=== PATIENT | female | born 1955 | race Two or more races ===

== ENCOUNTER 2018-12-29 11:41 | Emergency (ER) | payer OTHER ==
[~2018-12-29] VITALS: Ht 162.6 cm; Wt 77.1 kg
[2018-12-29 12:09] VITALS: BP 180/90
[2018-12-29] MEDS ORDERED: LIDOCAINE 1% (LOCAL ANESTH.) PF 5ml SDV ID ONE (13:00)
[2018-12-29] MEDS ORDERED: BACITRACIN TOP OINT 1 UD PKG TOP ONE (13:00)
[2018-12-29] MEDS ORDERED: HYDROcodone-ACET 5/325MG TAB PO ONE (13:00)
[2018-12-29] MEDS ORDERED: KETOROLAC TROMETH 60MG/2ML VIAL IM ONE (13:00)
[2018-12-29] MEDS ORDERED: NEOMYCIN-BACITRACIN-POLYM UNITDOSE PKG TOP OINT TOP ONE (13:44)
[2018-12-29] MEDS ORDERED: TETANUS-DIPTH-ACEL PERTUSSIS 0.5ML SYRG IM ONE (13:45)
== END 2018-12-29 14:57 | disposition home or self-care (01) ==
LOC: EDBD 11:41 → ER 11:44
CPT/HCPCS: 12013 ×2; 70450 ×2; 71045 ×2; 72125 ×2; 73590 ×2; 90471 ×2; 90715 ×2; 96372 ×2; 99284; J1885 ×2

== ENCOUNTER 2019-09-20 14:44 | Emergency (ER) | payer OTHER ==
[~2019-09-20] VITALS: Ht 160 cm; Wt 65.8 kg
[2019-09-20 16:49] LABS: Eosinophils # (auto) 0 uL; Lymphocytes # (auto) 0.6 uL
[2019-09-20 16:51] LABS: Basophils # (auto) 0 uL; Basophils % (auto) 0.2 % (0.0-2.0); Hematocrit 45.5 % (36.0-46.0); Hemoglobin 16.4 g/dL (12.2-16.2); Lymphocytes % (auto) 5.6 % (10.0-50.0); Mean Corpuscular Hemoglobin 33.8 pg (28.0-32.0); Mean Corpuscular Hgb Conc. 36.1 g/dL (32.0-36.0); Mean Corpuscular Volume 93.7 fL (80.0-100.0); Monocytes # (auto) 0.3 uL; Monocytes % (auto) 2.6 % (0.0-12.0); Neutrophils # (auto) 9.1 uL; Neutrophils % (auto) 91.6 % (37.0-80.0); Platelet Count (auto) 192 10^3/uL (140-450); Red Blood Cells 4.86 10^6/uL (4.0-5.20); Red Cell Distribution Width 12.7 % (11.8-14.3)
[2019-09-20 17:05] LABS: Albumin 4.2 g/dL (3.4-5.0); Anion Gap 8 (5-15); Aspartate Aminotransferase 23 U/L (15-37); BUN/Creatinine Ratio 26.2; Blood Urea Nitrogen 22 mg/dL (7-18); Calcium 8.8 mg/dL (8.5-10.1); Carbon Dioxide 26 mmol/L (21-32); Chloride 106 mmol/L (98-107); GFR African American 88 mL/min; GFR Non-African American 73 mL/min; Glucose 121 mg/dL (74-106); Magnesium 1.7 mg/dL (1.6-2.6); Potassium 3.1 mmol/L (3.5-5.1); Sodium 140 mmol/L (136-145)
[2019-09-20 17:10] LABS: Alanine Aminotransferase 35 U/L (13-56); Alkaline Phosphatase 53 U/L (45-117); Bilirubin, Total 1.2 mg/dL (0.2-1.0); Total Protein 7.7 g/dL (6.4-8.2)
[2019-09-20] MEDS ORDERED: ONDANSETRON HCL 4 MG/2 ML VIAL IV ONE (19:00)
[2019-09-20] MEDS ORDERED: SODIUM CHLORIDE 0.9% 1,000 ML IV ONE (19:00)
[2019-09-20 19:19] LABS: Amylase 40 U/L (25-115); Lipase 55 U/L (73-393)
[2019-09-20] MEDS ORDERED: IOHEXOL 300 MG/ML 100ML BOTTLE IJ ONE (20:55)
[2019-09-20] MEDS ORDERED: KETOROLAC TROMETH 30 MG/ML 1ML VIAL IV ONE (21:00)
[2019-09-20 21:54] LABS: Urine WBC None Seen /hpf (0 - 5)
[2019-09-20 22:16] LABS: Urine Bacteria NONE SEEN /hpf (None Seen); Urine Blood Negative /uL (Negative); Urine Mucus FEW (None Seen)
[2019-09-20 22:18] LABS: Urine Specific Gravity 1.078 (1.001-1.035)
[2019-09-20] MEDS ORDERED: POTASSIUM EFFERVESENT TAB 25 MEQ GT ONE (23:00)
[2019-09-20 23:20] VITALS: BP 136/62
== END 2019-09-20 23:40 | disposition home or self-care (01) ==
LOC: ER 14:44
DX: K59.00 Constipation, unspecified (principal); R11.2 Nausea with vomiting, unspecified; R42 Dizziness and giddiness; R51 Headache; Z90.710 Acquired absence of both cervix and uterus
CPT/HCPCS: 36415; 70450; 71046; 74177; 80053; 81001; 82150; 83690; 83735; 84484; 85025; 87804; 93005; 94761; 96361; 96374; 96375; 99284; J1885; J2405; J7030; Q9967

== ENCOUNTER 2024-04-22 14:37 | Inpatient (IN) | payer BC, OTHER ==
[~2024-04-22] VITALS: Ht 160 cm; Wt 63.0 kg
[2024-04-22] MEDS: IOHEXOL 350 MG/ML 100ML IJ ONE (15:22)
[2024-04-22 15:40] LABS: Basophils # (auto) 0 10 ^3/uL (0-0.2); Basophils % (auto) 0.6 % (0.0-2.0); Eosinophils # (auto) 0.1 10 ^3/uL (0-0.8); Eosinophils % (auto) 1.2 % (0.0-7.0); Hematocrit 42.7 % (36.0-46.0); Hemoglobin 15.4 g/dL (12.2-16.2); Lymphocytes # (auto) 1.3 10 ^3/uL (0.4-5.4); Lymphocytes % (auto) 18.7 % (10.0-50.0); Mean Corpuscular Hemoglobin 33.1 pg (28.0-32.0); Mean Corpuscular Hgb Conc. 36.1 g/dL (32.0-36.0); Mean Corpuscular Volume 91.7 fL (80.0-100.0); Monocytes # (auto) 0.4 10 ^3/uL (0-1.3); Monocytes % (auto) 5.8 % (0.0-12.0); Neutrophils # (auto) 5.3 10 ^3/uL (1.6-8.6); Neutrophils % (auto) 73.7 % (37.0-80.0); Nucleated Red Blood Cells % 0.2 %; Red Blood Cells 4.66 10^6/uL (4.0-5.20); Red Cell Distribution Width 12.6 % (11.8-14.3); White Blood Cell 7.2 10^3/uL (4.4-10.8)
[2024-04-22 15:59] VITALS: RESP 18; O2SAT 98
[2024-04-22 16:05] LABS: INR 1.06 (0.9-1.15); Partial Thromboplastin Time 27.9 SEC (24.5-34.5); Prothrombin Time 11.2 sec (9.3-11.8)
[2024-04-22 16:06] LABS: Alanine Aminotransferase 25 U/L (7-40); Albumin 4.6 g/dL (3.2-4.8); Alkaline Phosphatase 82 U/L (46-116); Anion Gap 7 (5-15); Aspartate Aminotransferase 19 U/L (13-40); BUN/Creatinine Ratio 28.9 (10.0-20.0); Bilirubin, Total 1.4 mg/dL (0.2-1.0); Blood Urea Nitrogen 22 mg/dL (9-23); Calcium 10.1 mg/dL (8.5-10.1); Carbon Dioxide 26 mmol/L (20-30); Chloride 108 mmol/L (98-107); Glucose 94 mg/dL (74-106); Magnesium 1.6 mg/dL (1.6-2.6); Potassium 3.4 mmol/L (3.5-5.1); Sodium 141 mmol/L (136-145); Total Protein 7.2 g/dL (5.7-8.2)
[2024-04-22] MEDS: cloNIDine HCL 0.1 MG TAB PO ONE (18:47)
[2024-04-22 20:00] VITALS: RESP 18; O2SAT 98
[2024-04-22] MEDS ORDERED: LABETALOL HCL 5 MG/ML 4ML SYRINGE IV PRN (23:00)
[2024-04-22] MEDS ORDERED: LORazepam 2MG/ML-1ML VIAL IV PRN (23:00)
[2024-04-22 23:29] LABS: LDL Cholesterol 91 mg/dL (< 100); Triglycerides 70 mg/dL (< 150)
[2024-04-22 23:31] LABS: Cholesterol 150 mg/dL (< 200); HDL Cholesterol 60 mg/dL (40-59)
[2024-04-23] VITALS (8 sets, daily range): BP systolic 124–141; BP diastolic 74–83; PULSE 68–95; RESP 14–20; TEMP 97.8–98.2; O2SAT 72–98
[2024-04-23] MEDS: ASPirin 300 MG RECTAL SUPP PR ONE ×2 (00:10→08:02)
[2024-04-23] MEDS ORDERED: HYDROcodone-ACET 5/325MG TAB PO PRN (07:45)
[2024-04-23] MEDS ORDERED: MORPHINE SULFATE INJ 2 MG/ml SYRG IV PRN (07:45)
[2024-04-23] MEDS ORDERED: NITROGLYCERIN 0.4 MG SL TAB SL PRN (07:45)
[2024-04-23] MEDS ORDERED: ACETAMINOPHEN 325 MG TAB PO PRN (07:45)
[2024-04-23] MEDS: ENOXAPARIN SOD 40 MG/0.4 ML SYRINGE SC SCH (08:01)
[2024-04-23 08:19] LABS: Basophils # (auto) 0.1 10 ^3/uL (0-0.2); Basophils % (auto) 0.8 % (0.0-2.0); Eosinophils # (auto) 0.1 10 ^3/uL (0-0.8); Eosinophils % (auto) 2.1 % (0.0-7.0); Hematocrit 40.7 % (36.0-46.0); Hemoglobin 14.7 g/dL (12.2-16.2); Lymphocytes # (auto) 1.3 10 ^3/uL (0.4-5.4); Lymphocytes % (auto) 19.6 % (10.0-50.0); Mean Corpuscular Hemoglobin 33.5 pg (28.0-32.0); Mean Corpuscular Hgb Conc. 36.2 g/dL (32.0-36.0); Mean Corpuscular Volume 92.4 fL (80.0-100.0); Monocytes # (auto) 0.5 10 ^3/uL (0-1.3); Neutrophils # (auto) 4.8 10 ^3/uL (1.6-8.6); Neutrophils % (auto) 70.5 % (37.0-80.0); Red Cell Distribution Width 12.8 % (11.8-14.3); White Blood Cell 6.8 10^3/uL (4.4-10.8)
[2024-04-23 08:26] LABS: Alanine Aminotransferase 22 U/L (7-40); Albumin 4.1 g/dL (3.2-4.8); Alkaline Phosphatase 70 U/L (46-116); Anion Gap 3 (5-15); Aspartate Aminotransferase 18 U/L (13-40); BUN/Creatinine Ratio 21.6 (10.0-20.0); Blood Urea Nitrogen 16 mg/dL (9-23); Calcium 9.8 mg/dL (8.5-10.1); Carbon Dioxide 29 mmol/L (20-30); Chloride 110 mmol/L (98-107); Glucose 95 mg/dL (74-106); LDL Cholesterol 81 mg/dL (< 100); Potassium 3.3 mmol/L (3.5-5.1); Sodium 142 mmol/L (136-145); Triglycerides 81 mg/dL (< 150)
[2024-04-23 08:27] LABS: Bilirubin, Total 1.9 mg/dL (0.2-1.0); Cholesterol 136 mg/dL (< 200); HDL Cholesterol 50 mg/dL (40-59); Total Protein 6.7 g/dL (5.7-8.2)
[2024-04-23] MEDS ORDERED: SIMV20TA20 PO (09:47)
[2024-04-23] MEDS ORDERED: LISI40TA16 PO (09:47)
[2024-04-23] MEDS ORDERED: HYDR25TA5 PO (09:47)
[2024-04-23] MEDS ORDERED: DONE5TAB80 PO (09:47)
[2024-04-23] MEDS ORDERED: NAP500T PO (09:47)
[2024-04-23] MEDS: ATORVASTATIN 20 MG TAB PO SCH (10:00)
[2024-04-23] MEDS ORDERED: POTASSIUM EFFERVESENT TAB 25 MEQ PO ONE (16:30)
[2024-04-23] MEDS ORDERED: D5W/SOD CHLO 0.9% 1,000 ML IV SCH (16:30)
[2024-04-23] MEDS: D5W/ SOD CHL 0.9%/KCL 20MEQ 1,000 ML IV SCH (18:11)
[2024-04-24] VITALS (7 sets, daily range): BP systolic 159–180; BP diastolic 74–107; PULSE 65–92; RESP 14–18; TEMP 97.5–98.6; O2SAT 97–99
[2024-04-24 11:01] LABS: Anion Gap 9 (5-15); Carbon Dioxide 24 mmol/L (20-30); Chloride 108 mmol/L (98-107); Potassium 3.3 mmol/L (3.5-5.1); Sodium 141 mmol/L (136-145)
[2024-04-24 11:03] LABS: Calcium 9.7 mg/dL (8.5-10.1)
[2024-04-24 11:07] LABS: BUN/Creatinine Ratio 26.5 (10.0-20.0); Blood Urea Nitrogen 18 mg/dL (9-23); Glucose 81 mg/dL (74-106)
[2024-04-24] MEDS: POTASSIUM CHL 20MEQ/100ML 100 ML IV ONE (16:35)
[2024-04-25] VITALS (8 sets, daily range): BP systolic 158–169; BP diastolic 79–106; PULSE 68–105; RESP 16–18; TEMP 97.4–98.7; O2SAT 95–98
[2024-04-25 15:04] LABS: Chloride 108 mmol/L (98-107); Potassium 3.1 mmol/L (3.5-5.1); Sodium 141 mmol/L (136-145)
[2024-04-25 15:05] LABS: Anion Gap 7 (5-15); Calcium 9.6 mg/dL (8.5-10.1); Carbon Dioxide 26 mmol/L (20-30)
[2024-04-25 15:10] LABS: BUN/Creatinine Ratio 14.3 (10.0-20.0); Blood Urea Nitrogen 9 mg/dL (9-23); Glucose 110 mg/dL (74-106)
[2024-04-25 17:06] LABS: INR 1.18 (0.9-1.15); Partial Thromboplastin Time 32.1 SEC (24.5-34.5); Prothrombin Time 12.4 sec (9.3-11.8)
[2024-04-26] VITALS (9 sets, daily range): BP systolic 155–177; BP diastolic 83–100; PULSE 67–124; RESP 16–20; TEMP 97.3–98.3; O2SAT 96–99
[2024-04-26 07:09] LABS: Chloride 110 mmol/L (98-107); Potassium 3.2 mmol/L (3.5-5.1); Sodium 142 mmol/L (136-145)
[2024-04-26 07:10] LABS: Anion Gap 6 (5-15); Carbon Dioxide 26 mmol/L (20-30)
[2024-04-26 07:11] LABS: Calcium 9.2 mg/dL (8.5-10.1)
[2024-04-26 07:15] LABS: BUN/Creatinine Ratio 11.6 (10.0-20.0); Blood Urea Nitrogen 8 mg/dL (9-23); Glucose 99 mg/dL (74-106)
[2024-04-26] MEDS: ASPirin 81 mg TAB PO SCH (09:46)
[2024-04-26] MEDS: POTASSIUM CHL 20MEQ/100ML 100 ML IV ONE (10:25)
[2024-04-26] MEDS ORDERED: LOSARTAN POTASSIUM 25 MG TAB PO ONE (12:30)
[2024-04-26] MEDS: hydrALAZINE HCL 20 MG/ML VL IV PRN (14:23)
[2024-04-26] MEDS: amLODIPine BESYLATE 5 MG TAB PO ONE (15:51)
[2024-04-26] MEDS: LOSARTAN POTASSIUM 50 MG TAB PO SCH (15:52)
[2024-04-27] VITALS (8 sets, daily range): BP systolic 129–155; BP diastolic 73–85; PULSE 87–179; RESP 17–20; TEMP 97.6–98.3; O2SAT 94–98
[2024-04-27] MEDS ORDERED: LOSARTAN POTASSIUM 25 MG TAB PO SCH (10:00)
[2024-04-27] MEDS: amLODIPine BESYLATE 5 MG TAB PO SCH (10:08)
[2024-04-27 12:10] LABS: Alanine Aminotransferase 28 U/L (7-40); Albumin 4.1 g/dL (3.2-4.8); Alkaline Phosphatase 70 U/L (46-116); Anion Gap 8 (5-15); Aspartate Aminotransferase 26 U/L (13-40); BUN/Creatinine Ratio 9.7 (10.0-20.0); Blood Urea Nitrogen 7 mg/dL (9-23); Calcium 9.7 mg/dL (8.5-10.1); Carbon Dioxide 22 mmol/L (20-30); Chloride 113 mmol/L (98-107); Glucose 125 mg/dL (74-106); Magnesium 1.5 mg/dL (1.6-2.6); Potassium 3.4 mmol/L (3.5-5.1); Sodium 143 mmol/L (136-145)
[2024-04-27 12:11] LABS: Bilirubin, Total 1.2 mg/dL (0.2-1.0); Total Protein 6.8 g/dL (5.7-8.2)
[2024-04-27] MEDS: MAGNESIUM SULFATE 1GM/100ML 100 ML IV SCH (14:05)
[2024-04-27] MEDS: POTASSIUM CHLORIDE 20 MEQ, LIDOCAINE 1% (LOCAL ANESTH.) 2 ML in SODIUM CHL 0.9% 100 ML IV ONE (14:06)
[2024-04-27] MEDS: METOPROLOL TARTRATE 25 MG TAB PO SCH (21:10)
[2024-04-28] VITALS (7 sets, daily range): BP systolic 117–143; BP diastolic 70–87; PULSE 66–90; RESP 17–19; TEMP 97–98.3; O2SAT 93–99
[2024-04-28 16:28] LABS: Basophils # (auto) 0.1 10 ^3/uL (0-0.2); Basophils % (auto) 0.8 % (0.0-2.0); Eosinophils # (auto) 0.2 10 ^3/uL (0-0.8); Eosinophils % (auto) 2.9 % (0.0-7.0); Hematocrit 44.4 % (36.0-46.0); Hemoglobin 16.1 g/dL (12.2-16.2); Lymphocytes # (auto) 1.5 10 ^3/uL (0.4-5.4); Lymphocytes % (auto) 18.6 % (10.0-50.0); Mean Corpuscular Hemoglobin 33.6 pg (28.0-32.0); Mean Corpuscular Hgb Conc. 36.4 g/dL (32.0-36.0); Mean Corpuscular Volume 92.3 fL (80.0-100.0); Monocytes # (auto) 0.6 10 ^3/uL (0-1.3); Monocytes % (auto) 7.7 % (0.0-12.0); Neutrophils # (auto) 5.6 10 ^3/uL (1.6-8.6); Nucleated Red Blood Cells % 0.2 %; Red Blood Cells 4.81 10^6/uL (4.0-5.20); Red Cell Distribution Width 12.7 % (11.8-14.3)
[2024-04-28 16:58] LABS: Alanine Aminotransferase 40 U/L (7-40); Albumin 4.6 g/dL (3.2-4.8); Alkaline Phosphatase 77 U/L (46-116); Anion Gap 7 (5-15); Aspartate Aminotransferase 31 U/L (13-40); BUN/Creatinine Ratio 19.5 (10.0-20.0); Blood Urea Nitrogen 16 mg/dL (9-23); Calcium 10.3 mg/dL (8.5-10.1); Carbon Dioxide 27 mmol/L (20-30); Chloride 107 mmol/L (98-107); Glucose 95 mg/dL (74-106); Magnesium 1.9 mg/dL (1.6-2.6); Potassium 3.3 mmol/L (3.5-5.1); Sodium 141 mmol/L (136-145)
[2024-04-28 16:59] LABS: Bilirubin, Total 1.4 mg/dL (0.2-1.0); Total Protein 7.5 g/dL (5.7-8.2)
[2024-04-29] VITALS (8 sets, daily range): BP systolic 114–151; BP diastolic 70–81; PULSE 72–102; RESP 15–20; TEMP 97.7–99.1; O2SAT 95–100
[2024-04-29] MEDS: ATORVASTATIN 20 MG TAB PO SCH (09:42)
[2024-04-30] VITALS (8 sets, daily range): BP systolic 98–148; BP diastolic 56–82; PULSE 68–110; RESP 16–19; TEMP 97.6–98.2; O2SAT 93–98
[2024-04-30] MEDS ORDERED: AML5T PO (12:36)
[2024-04-30] MEDS ORDERED: ASPI-325 PO (12:36)
[2024-04-30] MEDS ORDERED: LOSA-534 PO (12:36)
[2024-04-30] MEDS ORDERED: MET25T PO (12:36)
[2024-04-30] MEDS ORDERED: ATOR40TA52 PO (12:36)
[2024-05-01] VITALS (7 sets, daily range): BP systolic 104–137; BP diastolic 59–76; PULSE 65–87; RESP 16–19; TEMP 97.5–98.4; O2SAT 94–97
[2024-05-02] VITALS (13 sets, daily range): BP systolic 118–153; BP diastolic 51–85; PULSE 61–93; RESP 12–20; TEMP 97.8–98.5; O2SAT 92–98
[2024-05-02 12:21] LABS: Basophils # (auto) 0.1 10 ^3/uL (0-0.2); Basophils % (auto) 0.8 % (0.0-2.0); Eosinophils # (auto) 0.2 10 ^3/uL (0-0.8); Eosinophils % (auto) 1.8 % (0.0-7.0); Hematocrit 42.8 % (36.0-46.0); Hemoglobin 15.5 g/dL (12.2-16.2); Lymphocytes # (auto) 1.7 10 ^3/uL (0.4-5.4); Lymphocytes % (auto) 18.4 % (10.0-50.0); Mean Corpuscular Hemoglobin 33.4 pg (28.0-32.0); Mean Corpuscular Hgb Conc. 36.1 g/dL (32.0-36.0); Mean Corpuscular Volume 92.4 fL (80.0-100.0); Monocytes # (auto) 0.5 10 ^3/uL (0-1.3); Monocytes % (auto) 5.5 % (0.0-12.0); Neutrophils # (auto) 6.9 10 ^3/uL (1.6-8.6); Neutrophils % (auto) 73.5 % (37.0-80.0); Nucleated Red Blood Cells % 0.2 %; Red Blood Cells 4.63 10^6/uL (4.0-5.20); Red Cell Distribution Width 12.6 % (11.8-14.3); White Blood Cell 9.4 10^3/uL (4.4-10.8)
[2024-05-02 12:40] LABS: Chloride 106 mmol/L (98-107); Potassium 3.4 mmol/L (3.5-5.1); Sodium 142 mmol/L (136-145)
[2024-05-02 12:41] LABS: Anion Gap 7 (5-15); Calcium 9.8 mg/dL (8.5-10.1); Carbon Dioxide 29 mmol/L (20-30)
[2024-05-02 12:46] LABS: BUN/Creatinine Ratio 22.5 (10.0-20.0); Blood Urea Nitrogen 18 mg/dL (9-23); Glucose 94 mg/dL (74-106)
[2024-05-02] MEDS: MIDAZOLAM HCL 2MG/2ML 2ml VIAL (1mg/ml) IV ONE (14:00)
[2024-05-02] MEDS: LIDOCAINE VISCOUS 2% 15ML UD PO ONE (14:00)
[2024-05-02] MEDS: fentaNYL CITRATE 100 MCG/2 ML VL IV ONE (14:00)
[2024-05-02] MEDS: POTASSIUM CHL 20MEQ/100ML 100 ML IV SCH ×2 (16:56→20:42)
[2024-05-03 05:00] VITALS: BP 114/71; PULSE 77; RESP 16; TEMP 97.6; O2SAT 95
[2024-05-03 07:36] LABS: Anion Gap 9 (5-15); Calcium 9.6 mg/dL (8.5-10.1); Carbon Dioxide 26 mmol/L (20-30); Chloride 107 mmol/L (98-107); Potassium 3.5 mmol/L (3.5-5.1); Sodium 142 mmol/L (136-145)
[2024-05-03 07:41] LABS: Glucose 82 mg/dL (74-106)
[2024-05-03 07:42] LABS: BUN/Creatinine Ratio 21.9 (10.0-20.0); Blood Urea Nitrogen 16 mg/dL (9-23); Magnesium 1.6 mg/dL (1.6-2.6)
[2024-05-03 08:00] VITALS: PULSE 86; PULSE 97; RESP 16; O2SAT 92
[2024-05-03 08:36] VITALS: BP 136/71; PULSE 96; RESP 18; TEMP 98.3; O2SAT 92
[2024-05-03 10:14] VITALS: BP 136/71; PULSE 92; RESP 16; TEMP 98.3; O2SAT 92
== END 2024-05-03 13:24 | disposition home or self-care (01) | DRG 65 ==
LOC: ER 14:37 → TELE 04-23 07:35 → TELE-WESTW 04-23 10:12
PROVIDERS: ADMIT Nurse Practitioner Family; ATTEND Nurse Practitioner
PROC: B24BZZ4 Ultrasonography of Heart with Aorta, Transesophageal (ICD-10-PCS; principal; 2024-05-02)
DX: I63.9 Cerebral infarction, unspecified (principal); G81.94 Hemiplegia, unspecified affecting left nondominant side; I16.1 Hypertensive emergency; I47.10 Supraventricular tachycardia, unspecified; R47.01 Aphasia; I10 Essential (primary) hypertension; H53.47 Heteronymous bilateral field defects; E87.6 Hypokalemia; R29.703 NIHSS score 3; E83.42 Hypomagnesemia; R47.1 Dysarthria and anarthria; R13.10 Dysphagia, unspecified; Z90.710 Acquired absence of both cervix and uterus; Z79.82 Long term (current) use of aspirin; Z79.899 Other long term (current) drug therapy; Z82.3 Family history of stroke; Z83.3 Family history of diabetes mellitus; Z82.49 Family history of ischemic heart disease and other diseases of the circulatory system; Z91.148 Patient's other noncompliance with medication regimen for other reason
CPT/HCPCS: 36415; 70450; 70496; 70551; 71045; 80048; 80053; 80061; 83036; 83735; 83880; 84443; 84484; 85025; 85610; 85730; 92523; 92610; 93005; 93306; 93312; 95819; 97110; 97116; 97163; 97530; 99152; G0378; J2001; J2250; J3480; J7042